=== PATIENT | male | born 1960 | race Caucasian/White ===

== ENCOUNTER → 2020-02-26 08:26 | Outpatient (CLI) | payer MEDICARE, OTHER, SELFPAY ==
--- NOTE | 2020-02-26 08:34 | CT_ITS ---
PROCEDURE: CT LUNG SCREENING CLINICAL INDICATION: H/O NICOTINE DEPENDENCE 66 pack year smoking history. COMPARISON: No exams were available for comparison TECHNIQUE: The exam was performed on a GE Light Speed [address] scanner using 2.90 mGy CTDI. A low dose helical CT CHEST was performed on a multi-detector scanner. All CT scans at the facility use one or more dose reduction, viz: automated exposure control, ma/kV adjustment per patient size (including targeted exams where dose is matched to indication, i.e. head), or iterative reconstruction technique. The LDCT was performed in a facility that meets the criteria for the screening program. Data regarding this exam was submitted to ACR which is an approved registry. The order for this exam indicates that it came as a result of a lung cancer screening counseling shard decision-making visit that included all the elements required of such a visit including smoking cessation. The radiologist interpreting this exam meets the [facility] criteria for the LDCT lung cancer screening program. The exam is reported using the Lung-RADS classification scale and reported to the ACR registry. NOTE: This study was performed for the specific purposes of lung cancer screening and is not an alternative to diagnostic chest CT. RADIATION DOSE: CTDI vol(CT dose Index-volume) = 2.90mG DLP (Dose Length Product) = 110.46 mGcm Lung Rads Category: FINDINGS: COPD, centrilobular and paraseptal emphysema. Scattered areas of scarring with bronchial thickening. There is a right upper lobe mass in the right suprahilar region which measures 4.3 cm AP, 3.6 cm cephalad caudad, and 3 point 1 cm transverse highly suspicious for neoplasm. Along the anterior and superior aspect of the lesion there are extensions into the right upper lobe with tapering of these areas of extension. Multiple small satellite nodules are present in the right upper lobe. There is a mass present in the left lower lobe posterior aspect in the subpleural region containing some cavitation. This measures 2.9 cm transverse 2.2 cm AP and 2.8 cm cephalad caudad. There is cavitation along the superior aspect of this lesion. There is some lobularity along the anterior aspect of this mass which measures 8 mm. In addition, there is a 7 mm nodule in the left apex posteriorly and there is an irregular opacity in the left upper lobe somewhat more medial at 8 mm. There is diffuse bronchial thickening. A subpleural nodules present in the left lower lobe laterally at 5 mm. No pleural effusions are evident. OTHER FINDINGS: Coronary artery calcifications. Prior cholecystectomy. IMPRESSION: Lung rads 4 B highly suspicious for malignancy regarding right upper lobe mass. Recommend pulmonology consult with bronchoscopy and biopsy In addition, there is a suspicious 2.9 cm mass in the left lower lobe with cavitation which could represent a 2nd primary or metastatic focus. Inflammatory or infectious etiology is also consideration regarding this lesion. Dictated by: Richie Zarate MD 02/29/2020 09:50 Richie Zarate MD in [place] 02/29/2020 09:50
== END ==
PROVIDERS: PCP Family Medicine; Visit Provider Family Medicine
DX: Z87.891 Personal history of nicotine dependence (principal); Z12.2 Encounter for screening for malignant neoplasm of respiratory organs

== ENCOUNTER → 2020-04-15 13:58 | Outpatient (CLI) | payer MEDICARE, OTHER, SELFPAY | PROVIDERS: PCP Family Medicine; Visit Provider Family Medicine | DX: Z03.818 Encounter for observation for suspected exposure to other biological agents ruled out (principal) | CPT/HCPCS: U0003 ==

== ENCOUNTER → 2020-07-18 09:49 | Outpatient (CLI) | payer MEDICARE, OTHER, SELFPAY ==
[2020-07-18 10:26] LABS: Basophils % 0.7 % (0.1-2.0); Eosinophils # 0.3 K/mm3 (0.0-0.4); Eosinophils % 5.6 % (0.1-12.0); Hematocrit 32.7 % (42.0-52.0); Hemoglobin 10.8 g/dL (14.1-18.0); Lymphocytes # 0.8 K/mm3 (0.7-4.5); Mean Corpuscular HGB Conc 33.1 g/dL (31.8-35.4); Mean Corpuscular Hemoglobin 28.3 pg (27.0-31.2); Mean Corpuscular Volume 85.4 fl (80-94); Mean Platelet Volume 6.9 fl (7.4-10.4); Monocytes # 0.3 K/mm3 (0.1-1.0); Monocytes % 5.7 % (1.7-9.3); Platelet Count 262 K/mm3 (142-424); Red Blood Count 3.83 M/mm3 (4.60-6.20); Red Cell Distribution Width 16.8 % (11.5-17.5); White Blood Count 5.4 K/mm3 (4.8-10.8)
--- NOTE | 2020-07-18 10:27 | XR_ITS ---
PROCEDURE: XR FOOT WT BEARING RT 3V CLINICAL INDICATION: wound, pain Follow-up amputation COMPARISON: No exams were available for comparison FINDINGS: Status post amputation at the base of the 5th metatarsal. No bony erosive process evident. Mild osteoarthritic changes are present at the 1st metatarsophalangeal joint. There is mild spurring at the neck of the talus. Other findings:None. IMPRESSION: Status post amputation at the base of the 5th metatarsal otherwise negative Dictated by: Richie Zarate MD 07/18/2020 16:44 Richie Zarate MD in [place] 07/18/2020 16:44
[2020-07-18 10:59] LABS: Hemoglobin A1C 7.6 % (4.0-6.0)
[2020-07-18 11:15] LABS: Erythrocyte Sedimentation Rate 112 mm/hr (0-20)
[2020-07-18 11:42] LABS: Alanine Aminotransferase 19 U/L (12-78); Albumin/Globulin Ratio 1.1 (1.1-1.8); Alkaline Phosphatase 108 U/L (38-126); Anion Gap 13.8 mEq/L (5-15); Aspartate Amino Transferase 21 U/L (17-59); Bilirubin,Total 0.4 mg/dl (0.2-1.3); Blood Urea Nitrogen 14 mg/dl (9-20); Calcium 9.6 mg/dl (8.4-10.2); Carbon Dioxide 27 mmol/L (22.0-30.0); Chloride 98 mmol/L (98-107); Estimated Glomerular Filt Rate 76 ml/min (>60); GFR (African American) 92 ML/MIN (>60); Globulin 3.7 g/dL (1.3-3.2); Glucose 144 mg/dl (74-100); Potassium 4.8 mmoL/L (3.5-5.1); Sodium 134 mmol/L (136-145); Total Protein,Serum 7.7 g/dl (6.3-8.2)
[2020-07-18 11:48] LABS: C-Reactive Protein 20.4 mg/L (0-4)
== END ==
PROVIDERS: PCP Family Medicine; Visit Provider Nurse Practitioner
DX: E11.621 Type 2 diabetes mellitus with foot ulcer (principal); L97.516 Non-pressure chronic ulcer of other part of right foot with bone involvement without evidence of necrosis; Z79.84 Long term (current) use of oral hypoglycemic drugs
CPT/HCPCS: 36415; 73630; 80053; 83036; 85025; 85651; 86140; 87070; 87077; 87186; 87205

== ENCOUNTER → 2020-07-25 08:10 | Outpatient (CLI) | payer MEDICARE, OTHER, SELFPAY ==
--- NOTE | 2020-07-25 08:11 | US_ITS ---
APPROVED REPORT Exam Type: Lower Extremity Segmental Pressures In Class Special Education Teacher: Juanita Rudolph RDCS Indications Claudication: Rest Pain: Current Smoker History of Smoking CAD Risk Factors Diabetes Pressures/Indices Right Indices Left Indices Brachial 121.00 mmHg Brachial 122.00 mmHg Low Thigh 92.00 mmHg 0.75 Low Thigh 123.00 mmHg 1.01 Calf 92.00 mmHg 0.75 Calf 123.00 mmHg 1.01 Ankle(PT) 99.00 mmHg 0.81 Ankle(PT) 122.00 mmHg 1.00 Ankle(DP) 115.00 mmHg 0.94 Ankle(DP) 126.00 mmHg 1.03 Digit 68.00 mmHg 0.56 Digit 73.00 mmHg 0.60 Findings NORMAL WAVEFORMS AND PULSES R TIANNA .94 L TIANNA 1.0 R TBI .6 L TBI .6 Conclusion NORMAL WAVEFORMS AND PULSES R TIANNA .94 L TIANNA 1.0 R TBI .6 L TBI .6 Normal appearing resting noninvasive lower extremity arterial study. Electronically signed by : Richie Zarate MD 07/25/2020 15:18:22
== END ==
PROVIDERS: PCP Family Medicine; Visit Provider Podiatrist
DX: R09.89 Other specified symptoms and signs involving the circulatory and respiratory systems (principal); R20.9 Unspecified disturbances of skin sensation
CPT/HCPCS: 93923

== ENCOUNTER 2020-07-25 15:00 | Outpatient (CLI) | payer MEDICARE, OTHER, SELFPAY ==
[2020-07-25 15:07] VITALS: BMI 25.4
--- NOTE | 2020-07-25 15:16 | PC.NURSE ---
antoinette vasquez rn in to consult pt for picc line placement. pt taken to procedure room to evaluate for placement per md order. iv sl had been started for blood per md order and medication dosing.
[2020-07-25 15:27] LABS: Chloride 100 mmol/L (98-107); Potassium 4.3 mmoL/L (3.5-5.1); Sodium 135 mmol/L (136-145)
[2020-07-25 15:30] LABS: Blood Urea Nitrogen 9 mg/dl (9-20); Creatinine Clearance Estimated 77 mL/min (50-200); Estimated Glomerular Filt Rate 61 ml/min (>60); GFR (African American) 74 ML/MIN (>60)
[2020-07-25 15:31] LABS: Calcium 9.6 mg/dl (8.4-10.2); Glucose 121 mg/dl (74-100)
--- NOTE | 2020-07-25 15:34 | XR_ITS ---
PROCEDURE: XR CHEST PORTABLE PICC PLAC CLINICAL HISTORY: PICC line placement COMPARISON: No exams were available for comparison FINDINGS: The cardiomediastinal silhouette and pulmonary vascularity are within normal limits. Right upper extremity PICC line is been placed with tip in the region the SVC. Patchy density is present in the left mid lung suggesting a patchy area of infiltrate. No acute bony abnormalities. IMPRESSION: 1. PICC line tip in good position. 2. Patchy infiltrate in the left midlung Dictated by: Richie Zarate MD 07/25/2020 15:58 Richie Zarate MD in [place] 07/25/2020 15:58
--- NOTE | 2020-07-25 15:49 | PC.NURSE ---
picc line in place and pt returned to outpt recliner chair/dept. pt given sandwich and chips to eat per request. awaiting cxr to confirm placement of picc line to proceed with infusion.
[2020-07-25 16:00] VITALS: BP 125/64; PULSE 92; RESP 20; TEMP 36.4; O2SAT 97
[2020-07-25 16:02] LABS: Basophils # 0.1 K/mm3 (0-0.2); Basophils % 0.7 % (0.1-2.0); Eosinophils # 0.5 K/mm3 (0.0-0.4); Eosinophils % 6.6 % (0.1-12.0); Hemoglobin 10.3 g/dL (14.1-18.0); Lymphocytes # 1.4 K/mm3 (0.7-4.5); Lymphocytes % 17.9 % (10-50); Mean Corpuscular HGB Conc 31.2 g/dL (31.8-35.4); Mean Corpuscular Hemoglobin 27.5 pg (27.0-31.2); Mean Corpuscular Volume 87.8 fl (80-94); Monocytes # 0.5 K/mm3 (0.1-1.0); Neutrophils # 5.1 K/mm3 (1.8-7.8); Neutrophils % 67.7 % (37.0-80.0); Platelet Count 367 K/mm3 (142-424); Red Blood Count 3.75 M/mm3 (4.60-6.20); Red Cell Distribution Width 18.8 % (11.5-17.5); White Blood Count 7.6 K/mm3 (4.8-10.8)
--- NOTE | 2020-07-25 16:09 | HMH.PHACONS ---
- Pharmacy Consult Date: 07/25/20 Time: 16:10 Referring provider: DR. MCHUGH Reason for Consult:: GENTAMICIN DOSING Allergies and ADEs:: Allergies Allergy/AdvReac Type Severity Reaction Status Date / Time aspirin Allergy Severe Hives Verified 07/25/20 13:57 Home Medications:: Home Medications Medication Instructions Recorded Confirmed Type albuterol sulfate 90 mcg/actuation 1 puff INHALATION NEEDED PRN 03/14/20 07/25/20 History aerosol inhaler famotidine 40 mg tablet 40 mg PO DAILY tab 03/14/20 07/25/20 History lisinopril 2.5 mg tablet 2.5 mg PO DAILY tab 03/14/20 07/25/20 History nitroglycerin 0.4 mg sublingual 0.4 mg SUBLINGUAL NEEDED PRN 03/14/20 07/25/20 History tablet tab ropinirole 0.5 mg tablet 0.5 mg PO HS tab 03/14/20 07/25/20 History atorvastatin 40 mg tablet 40 mg PO HS 07/18/20 07/25/20 History clindamycin HCl 300 mg capsule 300 mg PO TID 14 Days #42 cap 07/18/20 07/25/20 Rx metoprolol succinate 25 mg 25 mg PO DAILY tab 07/18/20 07/25/20 History tablet,extended release 24 hr tramadol 50 mg tablet 50 mg PO NEEDED PRN tab 07/18/20 07/25/20 History Ciprofloxacin HCl [Ciprofloxacin 750 mg PO BID 07/25/20 07/25/20 History 750mg Tab] Nicotine [Nicotine Patch See Rx Instructions TRANSDERMA 07/25/20 07/25/20 History 14mg/24Hrs] .COMPLEX Oxycodone HCl 5 mg PO Q6HP PRN 07/25/20 07/25/20 History amlodipine 5 mg tablet 5 mg PO DAILY tab 07/25/20 07/25/20 History clopidogrel 75 mg tablet 75 mg PO DAILY tab 07/25/20 07/25/20 History gabapentin 800 mg tablet 800 mg PO TID tab 07/25/20 07/25/20 History metformin 500 mg tablet,extended 2,000 mg PO DAILY tab 07/25/20 07/25/20 History release 24 hr Height: 1.83 m Weight: 85.275 kg Laboratory Results:: Laboratory Results - last 24 hr 07/25/20 15:10: WBC 7.6, RBC 3.75 L, Hgb 10.3 L, Hct 33.0 L, MCV 87.8, MCH 27.5, MCHC 31.2 L, RDW 18.8 H, Plt Count 367, MPV 7.0 L, Neut % (Auto) 67.7, Lymph % (Auto) 17.9, [place] % (Auto) 7.0, Eos % (Auto) 6.6, Baso % (Auto) 0.7, Neut # (Auto) 5.1, Lymph # (Auto) 1.4, [place] # (Auto) 0.5, Eos # (Auto) 0.5 H, Baso # (Auto) 0.1 07/25/20 15:10: Sodium 135 L, Potassium 4.3, Chloride 100, Carbon Dioxide 27, BUN 9, Creatinine 1.20, Estimated Creat Clear 77, Estimated GFR 61, Est GFR ( Amer) 74, Glucose 121 H, Calcium 9.6, C-Reactive Protein 35.0 H Medical History: Reports:: Aneurysm (aaa), Cancer, Coronary Artery Disease, Diabetes Mellitus Type 2, Hyperlipidemia, Hypertension Assessment and Plan - Assessment and plan all Dx Assessment and Plan for all problems:: BASED ON PATIENT FACTORS, RECOMMEND GENTAMICIN 400 MG IV Q24H.
[2020-07-25 16:30] VITALS: BP 119/69; PULSE 91; RESP 20; O2SAT 97
[2020-07-25 16:47] LABS: Anion Gap 12.3 mEq/L (5-15); Carbon Dioxide 27 mmol/L (22.0-30.0)
[2020-07-25 17:03] VITALS: BP 117/56; PULSE 98; RESP 20; O2SAT 97
[2020-07-25 17:19] LABS: Erythrocyte Sedimentation Rate 117 mm/hr (0-20)
[2020-07-25 17:30] VITALS: BP 121/69; PULSE 91; RESP 20; O2SAT 97
[2020-07-25 19:01] LABS: Gentamicin,Peak 16.2 ug/ml (4.0-8.0)
== END 2020-07-25 17:30 | disposition home or self-care (01) ==
LOC: INF 15:05
PROVIDERS: PCP Family Medicine; Visit Provider Podiatrist
DX: E11.621 Type 2 diabetes mellitus with foot ulcer (principal); L97.513 Non-pressure chronic ulcer of other part of right foot with necrosis of muscle; Z79.84 Long term (current) use of oral hypoglycemic drugs
CPT/HCPCS: 36569; 71045; 80048; 80170; 85025; 85651; 86140; 93923; 96365; C1751

== ENCOUNTER → 2020-07-28 08:24 | Outpatient (CLI) | payer MEDICARE, OTHER, SELFPAY ==
--- NOTE | 2020-07-28 08:24 | US_ITS ---
PROCEDURE: US AORTA CLINICAL INDICATION: aaa Aortic aneurysm, history aortic stent COMPARISON: CT CT LUNG SCREENING from 02/26/2020 CR XR CHEST PORTABLE PICC PLAC from 07/25/2020 FINDINGS: This exam limited technically. The mid abdominal aorta measures up to 3.2 x3.4 cm. There are some echoes present within the abdominal aorta. This could represent an indwelling stent. Please correlate with patient's surgical history. Common iliacs are not dilated. IMPRESSION: Fusiform abdominal aortic aneurysm at 3.2 x 3.4 cm with questionable stent in place. Consider CT the abdomen for confirmation. Dictated by: Richie Zarate MD 07/28/2020 17:59 Richie Zarate MD in [place] 07/28/2020 17:59
== END ==
PROVIDERS: PCP Family Medicine; Visit Provider Nurse Practitioner Family
DX: I71.4 Abdominal aortic aneurysm, without rupture (principal); R06.02 Shortness of breath; Z01.810 Encounter for preprocedural cardiovascular examination
CPT/HCPCS: 76770

== ENCOUNTER → 2020-08-04 09:05 | Outpatient (CLI) | payer MEDICARE, OTHER, SELFPAY ==
--- NOTE | 2020-08-04 09:05 | MR_ITS ---
PROCEDURE: MR FOOT RT WO/W CON CLINICAL INDICATION: wound, possible osteomyelitis RIGHT LATERAL FOOT WOUND, PAIN, S/P AMPUTATION 5TH METATARSAL 10-23-20. 16ML PROGLENISCE LOT:[id number] EXP: AUG 2022 COMPARISON: CR XR FOOT WT BEARING RT 3V from 07/18/2020 TECHNIQUE: Routine multiplanar multi echo sequences are performed without and with gadolinium enhancement. FINDINGS: There has been an amputation at the proximal shaft of the 5th metatarsal. There is abnormal signal intensity of the remaining 5th metatarsal. Decreased T1 and increased T2 signal is present at the amputation site and proximal shaft and base of the 5th metatarsal with contrast enhancement at the amputation site and proximal shaft of the 5th metatarsal. There is ill definition at the amputation site. These findings are suspicious for osteomyelitis at the amputation site and proximal shaft of the 5th metatarsal. No abscess is evident. The 4th metatarsal and cuboid have an unremarkable appearance. There is a mild amount of subcutaneous edema and mild amount of generalized muscular edema about the plantar aspect of the foot. No obvious ligamentous or tendinous abnormalities although the exam is not tailored for the ankle tendons or ligaments. Small amount of fluid is present at the talocalcaneal area posteriorly. Mild osteoarthritic changes are present in the tarsal bones and tarsal metatarsal junction. IMPRESSION: 1. Prior amputation at the proximal aspect of the 5th metatarsal with suspected osteomyelitis at the amputation site and proximal shaft of the 5th metatarsal. Bone marrow edema is also present at the base of the 5th metatarsal which could also be related to underlying infection/inflammation 2. Other nonacute findings as described above. Dictated by: Richie Zarate MD 08/08/2020 14:49 Richie Zarate MD in [place] 08/08/2020 14:49
== END ==
PROVIDERS: PCP Family Medicine; Visit Provider Podiatrist
DX: E11.621 Type 2 diabetes mellitus with foot ulcer (principal); I96 Gangrene, not elsewhere classified; L03.115 Cellulitis of right lower limb; Z98.890 Other specified postprocedural states; Z79.84 Long term (current) use of oral hypoglycemic drugs
CPT/HCPCS: 73720; A9576

== ENCOUNTER → 2020-08-08 09:32 | Outpatient (CLI) | payer MEDICARE, OTHER, SELFPAY ==
--- NOTE | 2020-08-08 09:33 | CA_ITS ---
APPROVED REPORT EXAM: Comprehensive 2D, Doppler, and color-flow Echocardiogram Terrestrial Ecologist: Melissa Ferguson RVT Ht: 6 ft 0 in Wt: 188lbs BSA: 2.08 BP: 106/55 mmHg Indications: SOA,ABN EKG,CAD,STENT,AAA REPAIR,DM,HTN,HLD,SMOKER TDS 2D Dimensions LVOT 2.30 cm (M/F) 1.5-2.5 M-Mode Dimensions RVDd 2.30 cm (0.9-2.6) LA Diam 3.00 cm (1.9-4.0) LVDd 4.70 cm (3.5-5.7) Ao Diam 3.60 cm (2.0-3.7) LVDs 3.40 cm (3.5-5.7) AV Cusp 2.20 cm (1.5-2.6) IVSd 0.70 cm (0.6-1.1) PWd 1.00 cm (0.6-1.1) EF (Teich) 53.50% FS 27.70% EDV (Teich) 102.00 mL ESV (Teich) 47.40 mL LV Diastology E/A Ratio 0.7 MED E' 6.24 (< 7 cm/sec) E'/MED E' Ratio 8.90 (>14) LAT E' 9.07 (<10 cm/sec) E/LAT E' Ratio 6.10 (>14) Aortic Valve AoV Peak Judah. 103.00 (50-130 cm/s) AO Peak GR. 4.00 mmHg Mitral Valve MV E Max Judah. 55.30 (40-130 cm/s) MV A Velocity 82.90 (40-130 cm/s) E/A Ratio 0.70 Pulmonary Valve PV Peak Velocity 81.40 (50-150 cm/s) Left Ventricle Left atrium is mildly enlarged, left ventricle is normal size, mild concentric left ventricular hypertrophy, visually estimated ejection fraction 55% with no regional wall motion abnormality, grade 1 diastolic dysfunction seen without tissue Doppler evidence of raise left atrial pressure. Right Ventricle Right atrium and right ventricle are normal size and contractility. Aortic Valve Aortic valve is minimally thickened and fibrosed, there is no aortic stenosis or aortic insufficiency. Mitral Valve Mitral valve is grossly normal, there is trace mitral regurgitation. Tricuspid Valve Tricuspid valve grossly normal, there is trace tricuspid regurgitation. Pulmonic Valve Pulmonic valve is poorly visualized. Great Vessels Aortic root is normal size. Pericardium No significant pericardial effusion noted. Conclusion 1. Mildly enlarged left atrium, normal left ventricular size, mild concentric left ventricular hypertrophy, visually estimated ejection fraction 55% with no regional wall motion abnormality, grade 1 diastolic dysfunction seen without tissue Doppler evidence of raise left atrial pressure. 2. Trace mitral and tricuspid regurgitation. 3. No significant pericardial effusion. Electronically signed by : Irwin Loaiza, 08/09/2020 05:49:58
== END ==
PROVIDERS: PCP Family Medicine; Visit Provider Nurse Practitioner Family
DX: I25.10 Atherosclerotic heart disease of native coronary artery without angina pectoris (principal); I71.4 Abdominal aortic aneurysm, without rupture; R06.02 Shortness of breath; Z01.810 Encounter for preprocedural cardiovascular examination; R94.31 Abnormal electrocardiogram [ECG] [EKG]
CPT/HCPCS: 93306

== ENCOUNTER → 2020-08-12 07:29 | Outpatient (CLI) | payer MEDICARE, OTHER, SELFPAY ==
--- NOTE | 2020-08-12 | CA_ITS ---
APPROVED REPORT Exam: Pharmacologic Technologist: Sherry Gonzalez Ht: 6 ft 0 in Wt: 188 lbs BSA: 2.08 m2 HR: 90 bpm BP: 115/69 mmHg Indications: Shortness of Air, Abnormal EKG Medical History Medications: Amlodipine,,,,, Lisinopril,,,,, Metoprolol,,,,, Metformin,,,,, Gabapentin,,,,, Atorvastatin,,,,, Ropinirole,,,,, Albuterol,,,,, Tramadol,,,,, CloPIdogrel,,,,, Famotidine,,,,, OxYCODONE,,,,, Stress Test Details Test: LEXISCAN HR Resting HR: 92 bpm Max Heart Rate (APMHR): 158 bpm Max HR Achieved: 103 bpm Target HR (85% APMHR): 134 bpm % of APMHR: 65 Recovery HR: 93 bpm BP Resting BP: 115.0/69.0 mmHg Max BP: 133.0/70.0 mmHg Recovery BP: 129.0/68.0 mmHg ECG Resting ECG: Sinus rhythm Clinical Exercise duration: 03:59 min Highest Stage Achieved: Stress ECG Conclusion Lexiscan portion completed. Patient complained of shortness of breath. Symptoms: Shortness of breath during peak infusion, resolved in recovery. No chest pain. Arrhythmias/Ectopy: No ectopy ST-T Changes: Less than 1.[address] depression. Conclusion: Images to follow. Test Summary REST . . . . . . . Resting REST 02:14 . . 92 . 115/ 69 . . Stage 1 . . . . . . . Myoview Injected Stage 1 01:00 . . 101 . . . . Stage 2 01:00 . . 102 . 133/ 70 . . Stage 3 01:00 . . 98 . 117/ 69 . . Stage 4 00:59 . . 94 . 125/ 67 . Stop exercise at 03:59 RECOVERY 01:00 . . 97 . 113/ 65 . . RECOVERY 02:00 . . 91 . 113/ 65 . . RECOVERY 03:00 . . 91 . 113/ 65 . . RECOVERY 03:25 . . 94 . 129/ 68 . . Electronically signed by : Irwin Loaiza, 08/12/2020 17:44:11
--- NOTE | 2020-08-12 07:29 | NM_ITS ---
APPROVED REPORT Exam: Nuclear Stress Test Indication: CAD, H/O CT, HTN, D.M., HYPERLIPIDEMIA, TOB USE, SOB, ABN EKG Patient Location: Outpatient Stress Tech: Sherry Gonzalez [place] Tech:Britt Schmid ARRT RT(R)(N) Ht: 6 ft 0 in Wt: 188 lbs HR: 90 bpm BP: 115/69 mmHg BSA: 2.08 m2 History: CAD, H/O CT, HTN, D.M., HYPERLIPIDEMIA, TOB USE, SOB, ABN EKG Procedure: Patient received a 0.4 mg of intravenous Lexiscan, resting heart rate 90 bpm, resting blood pressure 115/69 mmHg, with Lexiscan maximum heart rate achived was 102 bpm which is Less than 85 % of the maximum predicted heart rate and blood pressure was 130/70 mmHg. With Lexiscan, patient denied any complaint of chest pain. Electrocardiogram Resting electrocardiogram showed sinus rhythm, with Lexiscan there is less than 1.[address] segment depression noted from the baseline EKG. The EKG portion of the Lexiscan is nondiagnostic. Cardiac Stress and Resting SPECT Images: Cardiac Stress and Resting SPECT images were obtained using technetium 99m Myoview 31.5 mCi stress and 10.54 mCi at rest. Gated SPECT for analysis of segmental wall motion and calculation of the ejection fraction also done. Cardiac stress and resting SPECT images show fixed defect involving the anteroseptal wall, consistent with area of nontransmural myocardial scarring without significant andrew-infarct ischemia, computer derived ejection fraction is 46% with anteroseptal wall hypokinesis. Right ventricle is mildly enlarged with normal contractility. Conclusion: 1. The EKG portion of the Lexiscan is nondiagnostic. 2. Scintigraphic evidence of nontransmural myocardial scarring involving the anteroseptal wall without significant andrew-infarct ischemia, computer derived ejection fraction 46% with segmental wall motion abnormality described above, right ventricle is mildly enlarged with normal contractility. 3. Abnormal Lexiscan Myoview study. Electronically signed by : Irwin Loaiza, 08/12/2020 18:00:58
== END ==
PROVIDERS: PCP Family Medicine; Visit Provider Nurse Practitioner Family
DX: I25.10 Atherosclerotic heart disease of native coronary artery without angina pectoris (principal); I71.4 Abdominal aortic aneurysm, without rupture; R06.02 Shortness of breath; Z01.810 Encounter for preprocedural cardiovascular examination; R94.31 Abnormal electrocardiogram [ECG] [EKG]
CPT/HCPCS: 78452; 93017; A9502; J2785

== ENCOUNTER 2020-08-19 12:17 | Day surgery (SDC) | payer MEDICARE, OTHER, SELFPAY ==
[2020-08-19] VITALS (11 sets, daily range): BP systolic 103–170; BP diastolic 54–101; PULSE 100–123; RESP 18–26; TEMP 37.8–39.3; O2SAT 92–99; BMI 25.4
--- NOTE | 2020-08-19 | IR_ITS ---
APPROVED REPORT Patient Location: Outpatient Senior Structural Engineer: ROJAS Patterson RT (R) PROCEDURES Left heart catheterization Left ventriculogram Selective coronary angiogram Drug-eluting stent deployment to the proximal and mid LAD in a contiguous manner Drug-eluting stent deployment to the proximal circumflex artery INDICATION Coronary disease, Preoperative evaluation, High risk abnormal Myoview Informed consent was obtained prior to the procedure. COMPLICATIONS NONE Estimated Blood Loss: LESS THAN 10 MLS TECHNIQUE One percent lidocaine used to anesthetize the right anterior aspect of the wrist. The right radial artery was accessed via the Seldinger technique. A 6 Argentine sheath was placed in the right radial artery. 2.5 mg of verapamil, 800 mcg of nitroglycerin, 1mg Lidocaine and 5000 U Heparin were given through the arterial sheath. The trap catheter was also used to perform left heart catheterization, left ventriculogram and selective coronary angiogram. At the end the diagnostic angiogram therapeutic heparin was administered giving a therapeutic ACT and a JL 3 6 Argentine guide catheter was placed in the left main artery. A wire was placed distally and predilatation was made in the LAD due to inability to primary stent. A 3 mm x 38 mm resolute Simon stent was deployed at 20 [place] reducing the stenosis. The distal portion of the stent was postdilated with a 3 mm x 8 mm balloon at 24 [place] which did not reduce the lesion. An additional 3.25 x 8 mm noncompliant balloon was taken to 24 [place] up and down the proximal mid and distal segment of the stent to further post dilate thereby giving excellent angiographic results. After excellent angiographic cells were obtained with SHANNAN-3 flow down the vessel before and after the procedure the apparatus was removed and the wire was placed back in the circumflex artery. Primary stenting could not be performed therefore a 2.5 mm balloon was used to predilate the proximal stenosis. A 2.75 x 12 mm resolute Simon stent was then deployed in the proximal segment at 20 [place] reducing the severe stenosis to 0%. SHANNAN-3 flow was present before and after the procedure. At the end the procedure apparatus was removed the sheath was removed and hemostasis was achieved using TR banding patient was transferred to the postop holding her stable addition ANGIOGRAPHIC RESULTS The left main artery Normal The left anterior descending artery Has a proximal 90% concentric stenosis representing severe in-stent restenosis. The mid LAD then has a concentric 80% stenosis. The distal vessel has mild nonflow limiting atheromatous plaque. The first diagonal artery has a stent originating off the LAD which is widely patent. The circumflex artery Is a nondominant yet still large vessel with a proximal concentric 80 to 90% stenosis with additional 60% stenosis in the proximal and midportion of the terminal large obtuse marginal artery The right coronary artery Is a codominant vessel with proximal 30% stenosis mid vessel 40% stenoses distal 30% stenosis. The posterior descending artery is a small caliber vessel with diffuse moderate 40 to 50% mid vessel distal stenoses and areas less than 2 mm in diameter The BELTRAN ventriculogram reveals Reduced at 50% The left ventricular end-diastolic pressure 15 mmHg Severe to critical two-vessel coronary disease Successful stenting the proximal and mid LAD critical disease reduced to 0% with 1 drug-eluting stent in a contiguous manner Successful stenting the proximal circumflex artery severe disease reduced to 0% with 1 drug-eluting stent Ejection fraction 50% Mild elevated LVEDP IMPRESSION Dual antiplatelet therapy LDL less than 55 Cardiac reha
[2020-08-19 12:49] LABS: Basophils % 0.7 % (0.1-2.0); Eosinophils # 0.3 K/mm3 (0.0-0.4); Hematocrit 36.5 % (42.0-52.0); Hemoglobin 11.4 g/dL (14.1-18.0); Lymphocytes # 0.6 K/mm3 (0.7-4.5); Lymphocytes % 8.8 % (10-50); Mean Corpuscular HGB Conc 31.1 g/dL (31.8-35.4); Mean Platelet Volume 6.6 fl (7.4-10.4); Monocytes # 0.3 K/mm3 (0.1-1.0); Monocytes % 4.8 % (1.7-9.3); Neutrophils # 5.1 K/mm3 (1.8-7.8); Neutrophils % 81.6 % (37.0-80.0); Platelet Count 318 K/mm3 (142-424); Red Blood Count 4.05 M/mm3 (4.60-6.20); Red Cell Distribution Width 17.9 % (11.5-17.5); White Blood Count 6.2 K/mm3 (4.8-10.8)
[2020-08-19 12:59] LABS: Anion Gap 9.4 mEq/L (5-15); Blood Urea Nitrogen 8 mg/dl (9-20); Calcium 9.5 mg/dl (8.4-10.2); Carbon Dioxide 26 mmol/L (22.0-30.0); Chloride 103 mmol/L (98-107); Creatinine Clearance Estimated 92 mL/min (50-200); Estimated Glomerular Filt Rate 76 ml/min (>60); GFR (African American) 92 ML/MIN (>60); Glucose 162 mg/dl (74-100); Potassium 4.4 mmoL/L (3.5-5.1); Sodium 134 mmol/L (136-145)
[2020-08-19 13:15] LABS: Coronavirus 19 IgG Antibody Negative (Negative); Coronavirus 19 IgM Antibody Negative (Negative)
[2020-08-19 16:11] LABS: CATHL Activated Clotting Time 285 SEC (74-125)
--- NOTE | 2020-08-19 18:58 | SUR.OPER ---
PT REFUSES TO STAY TO RECEIVE GENT IV INFUSION.
== END 2020-08-19 19:21 | disposition home or self-care (01) ==
LOC: CATHLAB 13:11 → 2ND 16:31
PROVIDERS: Physician Assistant; PCP Family Medicine; Visit Provider Internal Medicine
DX: E11.621 Type 2 diabetes mellitus with foot ulcer (principal); E78.2 Mixed hyperlipidemia; I10 Essential (primary) hypertension; I25.110 Atherosclerotic heart disease of native coronary artery with unstable angina pectoris; I42.9 Cardiomyopathy, unspecified; R06.02 Shortness of breath; R94.39 Abnormal result of other cardiovascular function study; Z72.0 Tobacco use; Z95.5 Presence of coronary angioplasty implant and graft; M86.671 Other chronic osteomyelitis, right ankle and foot; T82.855A Stenosis of coronary artery stent, initial encounter; L97.514 Non-pressure chronic ulcer of other part of right foot with necrosis of bone; Z88.0 Allergy status to penicillin; Z79.84 Long term (current) use of oral hypoglycemic drugs; Z79.51 Long term (current) use of inhaled steroids
CPT/HCPCS: 36415; 80048; 85025; 85347; 86328; 87040; 87077; 87186; 92928; 93458; 99152; 99153; C1725; C1769; C1876; C9600; J1644; J3370; Q9967

== ENCOUNTER → 2020-09-14 12:36 | Outpatient (CLI) | payer MEDICARE, OTHER, SELFPAY ==
[2020-09-14 13:12] LABS: Basophils % 0.4 % (0.1-2.0); Eosinophils # 0.5 K/mm3 (0.0-0.4); Eosinophils % 5.1 % (0.1-12.0); Hematocrit 39.3 % (42.0-52.0); Hemoglobin 12.4 g/dL (14.1-18.0); Lymphocytes # 1.6 K/mm3 (0.7-4.5); Lymphocytes % 17.6 % (10-50); Mean Corpuscular HGB Conc 31.5 g/dL (31.8-35.4); Mean Corpuscular Volume 91.9 fl (80-94); Mean Platelet Volume 7.2 fl (7.4-10.4); Monocytes # 0.5 K/mm3 (0.1-1.0); Neutrophils # 6.6 K/mm3 (1.8-7.8); Neutrophils % 71.9 % (37.0-80.0); Platelet Count 375 K/mm3 (142-424); Red Blood Count 4.27 M/mm3 (4.60-6.20); Red Cell Distribution Width 16.8 % (11.5-17.5); White Blood Count 9.1 K/mm3 (4.8-10.8)
[2020-09-14 13:39] LABS: Alanine Aminotransferase 14 U/L (12-78); Albumin Level 4.2 g/dl (3.5-5.0); Albumin/Globulin Ratio 1.1 (1.1-1.8); Alkaline Phosphatase 86 U/L (38-126); Anion Gap 12.5 mEq/L (5-15); Aspartate Amino Transferase 19 U/L (17-59); Bilirubin,Total 0.3 mg/dl (0.2-1.3); Blood Urea Nitrogen 10 mg/dl (9-20); Calcium 9.6 mg/dl (8.4-10.2); Carbon Dioxide 26 mmol/L (22.0-30.0); Chloride 104 mmol/L (98-107); Estimated Glomerular Filt Rate 76 ml/min (>60); GFR (African American) 92 ML/MIN (>60); Globulin 3.7 g/dL (1.3-3.2); Glucose 232 mg/dl (74-100); Potassium 4.5 mmoL/L (3.5-5.1); Sodium 138 mmol/L (136-145); Total Protein,Serum 7.9 g/dl (6.3-8.2)
[2020-09-14 14:13] LABS: Erythrocyte Sedimentation Rate 33 mm/hr (0-20)
[2020-09-14 14:45] LABS: Coronavirus 19 IgG Antibody Negative (Negative); Coronavirus 19 IgM Antibody Negative (Negative)
== END ==
PROVIDERS: Visit Provider Podiatrist
DX: Z01.818 Encounter for other preprocedural examination (principal); Z20.822 Contact with and (suspected) exposure to COVID-19; M86.671 Other chronic osteomyelitis, right ankle and foot; L03.115 Cellulitis of right lower limb
CPT/HCPCS: 36415; 80053; 85025; 85651; 86140; 86328; 87070; 87186; 87205

== ENCOUNTER 2020-09-16 08:13 | Day surgery (SDC) | payer MEDICARE, OTHER, SELFPAY ==
[2020-09-14 16:01] VITALS: BMI 25.4
[2020-09-16] VITALS (10 sets, daily range): BP systolic 112–157; BP diastolic 54–91; PULSE 90–139; RESP 18–30; TEMP 36.7–43; O2SAT 93–98
[2020-09-16 09:02] LABS: POC Glucose,Bedside 202 (70-110)
--- NOTE | 2020-09-16 10:05 | [facility].OPNOTE ---
Date of procedure: 09/16/20 Pre-op Diagnosis:: 1. Cellulitis of right foot 2. Other chronic osteomyelitis of right foot 3. 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 Gangrene of right foot 5. Right dorsal foot ulcer 6. Diabetic infection of right foot 7. 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 Non-compliance Post-op Diagnosis:: Same Procedure performed:: 1. Right 5th metatarsal amputation 2. Right foot incision and drainage 3. Right foot debridement of non-viable soft tissue and bone, ulcer excision 4. Right foot bone biospy 5. Right foot application of antibiotic beads 6. Right foot delayed primary closure Surgeon:: Pamela Huggins DPM [employer] OPERATOR:: Antonio Mayers Anesthesia: MAC, local (0.5% marcaine plain) Estimated blood loss (mL): 15 Clinical Note:: Patient is a 60-year-old diabetic male who initially presented after having a surgery [facility]. He has history of 3 right foot surgeries. Patient is a poor historian. Reviewed medical records. 05/06/20: right 5th metatarsal I&D, gastroc recession by Dr. Landeros. [facility], 05/09-05/12/20, 05/10/20: MRI (-) OM. 05/09/20, wound culture right foot: MRSA, Klebsiella. Wound culture right foot, 07/18/20: Pseudomonas aeruginosa. I discussed with the patient the importance of proper hygiene and maintaining a clean healthy wound bed to avoid the infection spreading. The wound was cleansed with flue cleaner. Minimal andrew-wound cellulitis noted. Non-palpable popliteal lymph nodes. Discussed surgery for debridement of non-viable soft tissue and 5th metatarsal amputation. Patient understands that there is a chance that the toes can migrate to fill the gap or the foot may change shape after surgery. We discussed the peroneus brevis attachment in detail and how loss of attachment can cause foot to change shape and loss of eversion. He understands he may need a custom brace such as an AFO. Patient also understands that they could have wound healing complications including delayed healing and infection. We discussed that if the wound does not heal, it is possible that they may need a more proximal amputation and could result in further loss of digits, loss of partial foot or loss of leg. We discussed the risks and benefits in great detail. Other surgical risks include: prolonged pain and swelling, further infection requiring oral or IV antibiotics, delay in healing of soft tissue or bone, nerve or blood vessel damage, CRPS/RSD, DVT, anesthesia complications, and even . All questions answered. Patient verbalized understanding. Consent obtained. Dr. Luna granted medical clearance and Dr. Sanders/cardiology granted cardiac clearance. Pre-op labs: ESR, CRP, Ha1c, CBC, CMP, covid. Labs, 09/14/20: wbc 9.1, esr 33, crp 44, glucose 232, creatinine 1.0, gfr 76, covid (-). Pain mgmt per Dr. Luna. ID Dr. Zhou-PICC placed, holding IV abx until after bone biospy. Operative findings:: Right foot ulcer approximately 3 x 2 cm with exposed fifth metatarsal through the wound. Malodor noted. Periwound edema erythema and maceration. Dorsal foot had a 0.2x0.2 dorsal spot with fluctuance. No purulence or malodor expressed from this area. The fifth metatarsal was soft and crumbly with purulence noted to the bone. Operative note:: On this date and time patient was deemed an appropriate surgical candidate. With informed consent signed, the patient was taken to the operating theater. The patient was positioned supine. MAC anesthesia was induced. No tourniquet used. Pre-op right 5th metatarsal and ankle blocks given with 30 cc 0.5% marcaine plain. Right foot was prepped and draped in a normal sterile fashion. Right foot incision and drainage: Attention was directed to the dorsal right foot where a small lesion was noted. A 15 blade was used to puncture through skin and subcutaneous tissue. No purulence was expr
--- NOTE | 2020-09-16 11:15 | PC.NURSE ---
PT SHIVERING SEVERLY AND SAYING HE FELT COLD. BEAR HUGGER APPLIED AND 4 WARM BLANKETS WRAPPED AROUND PT.
--- NOTE | 2020-09-16 11:30 | XR_ITS ---
PROCEDURE: XR FOOT RT MIN 3V CLINICAL INDICATION: Right foot amp Follow-up surgery COMPARISON: CR XR FOOT WT BEARING RT 3V from 07/18/2020 FINDINGS: There has been interval amputation of the base of the 5th metatarsal. Skin clips and antibiotic beads are present laterally. Mild osteoarthritic change 1st metatarsophalangeal joint Other findings:None. IMPRESSION: Interval amputation at the base of the 5th metatarsal Dictated by: Richie Zarate MD 09/16/2020 15:12 Richie Zarate MD in [place] 09/16/2020 15:12
--- NOTE | 2020-09-16 11:40 | SUR.PHASEII ---
DEMEROL 25MG IV GIVEN FOR SHIVERING.
--- NOTE | 2020-09-16 11:52 | SUR.PHASEII ---
ZOFRAN 4MG IV GIVEN FOR N/V. PT SHIVERING BEGINNING TO IMPROVE.
[2020-09-16 12:12] LABS: POC Glucose,Bedside 157 (70-110)
--- NOTE | 2020-09-16 12:29 | PC.NURSE ---
PT GETTING DRESSED PT VOMITED AGAIN. SAID HE FELT RELIEF AFTERWARD. INSTRUCTED PT TO TAKE METOPROLOL WHEN ARRIVED HOME SINCE DID NOT TAKE THIS AM AND HR IS ELEVATED. VERBALIZED UNDERSTANDING.
== END 2020-09-16 12:30 | disposition home or self-care (01) ==
LOC: OR 08:14
PROVIDERS: PCP Family Medicine; Visit Provider Podiatrist
DX: E11.621 Type 2 diabetes mellitus with foot ulcer (principal); I96 Gangrene, not elsewhere classified; L97.514 Non-pressure chronic ulcer of other part of right foot with necrosis of bone; Z72.0 Tobacco use; E11.628 Type 2 diabetes mellitus with other skin complications; Z91.19 Patient's noncompliance with other medical treatment and regimen; E11.40 Type 2 diabetes mellitus with diabetic neuropathy, unspecified; E11.69 Type 2 diabetes mellitus with other specified complication; M86.671 Other chronic osteomyelitis, right ankle and foot; B95.2 Enterococcus as the cause of diseases classified elsewhere; B95.4 Other streptococcus as the cause of diseases classified elsewhere; Z79.84 Long term (current) use of oral hypoglycemic drugs
CPT/HCPCS: 11042; 28810; 73630; 82962; 87070; 87077; 87186; 87205; 88305; 88311; 96374; C1713; J0692; J3370

== ENCOUNTER 2020-09-22 09:59 | Outpatient (CLI) | payer MEDICARE, OTHER, SELFPAY ==
[2020-09-22 10:09] VITALS: BP 130/77; PULSE 84; RESP 20; O2SAT 96
[2020-09-22 10:54] VITALS: BMI 30.3
--- NOTE | 2020-09-22 10:55 | XR_ITS ---
PROCEDURE: XR CHEST PORTABLE PICC PLAC CLINICAL HISTORY: Confirm PICC line placement COMPARISON: CR XR CHEST PORTABLE PICC PLAC from 07/25/2020 FINDINGS: The cardiomediastinal silhouette and pulmonary vascularity are within normal limits. A PICC line has been inserted by the right subclavian approach. The tip is in satisfactory position in the region of the superior vena cava. There is evidence of old granulomatous disease. Patchy infiltrate is present in the left mid to lower lung zone. IMPRESSION: A PICC line has been inserted by the right subclavian approach. The tip is in satisfactory position in the region of the superior vena cava No change patchy infiltrate in the left lower lobe Dictated by: Richie Zarate MD 09/22/2020 11:05 Richie Zarate MD in [place] 09/22/2020 11:05
== END 2020-09-22 11:50 | disposition home or self-care (01) ==
PROVIDERS: PCP Family Medicine; Visit Provider Podiatrist
DX: M86.171 Other acute osteomyelitis, right ankle and foot (principal); Z89.431 Acquired absence of right foot
CPT/HCPCS: 36569; 71045; C1751; G0463

== ENCOUNTER 2020-09-29 11:14 | Outpatient (CLI) | payer MEDICARE, OTHER, SELFPAY ==
[2020-09-29 11:35] VITALS: BP 140/77; PULSE 97; RESP 18; TEMP 36.4; O2SAT 96
[2020-09-29 13:15] VITALS: BP 135/72; PULSE 91; RESP 18
== END 2020-09-29 13:15 | disposition home or self-care (01) ==
LOC: INF 11:14
PROVIDERS: Visit Provider Internal Medicine Infectious Disease
DX: M86.9 Osteomyelitis, unspecified (principal)
CPT/HCPCS: 96365; 96367; J0878; J1335

== ENCOUNTER 2020-11-22 16:20 | Outpatient (CLI) | payer MEDICARE, OTHER, SELFPAY | END 2020-11-22 16:29 | disposition home or self-care (01) | LOC: INF 16:21 | PROVIDERS: PCP Family Medicine; Visit Provider Podiatrist | DX: Z45.2 Encounter for adjustment and management of vascular access device (principal); Z89.421 Acquired absence of other right toe(s) | CPT/HCPCS: 96523 ==

== ENCOUNTER → 2021-02-06 14:54 | Outpatient (CLI) | payer MEDICARE, OTHER, SELFPAY ==
[2021-02-06 15:51] LABS: Alanine Aminotransferase 17 U/L (12-78); Albumin/Globulin Ratio 1.3 (1.1-1.8); Alkaline Phosphatase 112 U/L (38-126); Anion Gap 15.4 mEq/L (5-15); Aspartate Amino Transferase 16 U/L (17-59); Bilirubin,Total 0.4 mg/dl (0.2-1.3); Blood Urea Nitrogen 13 mg/dl (9-20); Calcium 9.3 mg/dl (8.4-10.2); Carbon Dioxide 29 mmol/L (22.0-30.0); Chloride 96 mmol/L (98-107); Estimated Glomerular Filt Rate 68 ml/min (>60); GFR (African American) 82 ML/MIN (>60); Glucose 304 mg/dl (74-100); Potassium 4.4 mmoL/L (3.5-5.1); Sodium 136 mmol/L (136-145)
[2021-02-06 15:56] LABS: C-Reactive Protein 28.8 mg/L (0-4); Erythrocyte Sedimentation Rate 64 mm/hr (0-20)
== END ==
PROVIDERS: Visit Provider Nurse Practitioner
DX: Z98.890 Other specified postprocedural states (principal)
CPT/HCPCS: 36415; 80053; 85651; 86140